=== PATIENT | female | born 1955 | race Caucasian/White ===

== ENCOUNTER 2021-11-06 17:09 | Emergency (ER) | payer BC, MEDICARE ==
[2021-11-06] MEDS ORDERED: Ketorolac 30 MG/ML SDV IVPUSH ONE (17:11)
== END 2021-11-06 19:17 | disposition home or self-care (01) ==
LOC: MW.ED 17:09
DX: S32.010A Wedge compression fracture of first lumbar vertebra, initial encounter for closed fracture (principal); Z88.6 Allergy status to analgesic agent; Z79.899 Other long term (current) drug therapy; W50.0XXA Accidental hit or strike by another person, initial encounter
CPT/HCPCS: 72131; 96374; 96375; 99284; J1885; J3360